=== PATIENT | female | born 1995 | race Caucasian/White ===

== ENCOUNTER 2018-11-10 10:32 | Emergency (ER) | payer OTHER ==
[2018-11-10 11:04] VITALS: RESP 16; TEMP 98.4
[2018-11-10] MEDS ORDERED: methylPREDNISolone SOD SUCCI 125 MG/2 ML VIAL IV STA (11:39)
[2018-11-10] MEDS ORDERED: diphenhydrAMINE 50 MG/ML 1 ML VIAL IVP STA (11:39)
[2018-11-10] MEDS ORDERED: FAMOTIDINE 20 MG/2 ML VIAL IV STA (11:39)
--- NOTE | 2018-11-10 11:46 | ED ---
Skin/Abscess/FB HPI - General Chief complaint: Skin/Abscess/Foreign Body Stated complaint: Hives/allergic reaction, chest tightness Time Seen by Provider: 11/10/18 11:14 Source: patient, RN notes reviewed Mode of arrival: ambulatory Limitations: no limitations - History of Present Illness Initial comments: 23-year-old female presents emergency Department with chief complaint of rash. Patient states that his last night has progressively worsened today which is diffusely all over her. Patient states is very itchy. She does notice it on her palms of her hands. Patient states that she has no sores or lesions or mouth. Patient was on Augmentin secondary to upper respiratory infection that has been lingering for several weeks. Patient denies any recent fevers or chills. Patient denies any difficulty breathing or shortness of breath. Patient states that she took Benadryl with no relief of symptoms. - Related Data Home Medications Medication Instructions Recorded Confirmed Lo Loestrin 1 tab PO DAILY@1200 11/10/18 11/10/18 buPROPion HCL [Wellbutrin SR] 150 mg PO BID 11/10/18 11/10/18 Previous Rx's Medication Instructions Recorded hydrOXYzine HCL [Atarax] 25 mg PO TID PRN #15 tab 11/10/18 Allergies Allergy/AdvReac Type Severity Reaction Status Date / Time Sulfa (Sulfonamide Allergy Unknown Verified 11/10/18 11:52 Antibiotics) Childhood Review of Systems ROS Statement: Those systems with pertinent positive or pertinent negative responses have been documented in the HPI. ROS Other: All systems not noted in ROS Statement are negative. 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 Absent: scleral icterus, conjunctival injection, periorbital swelling ENT exam: Present: normal exam, normal oropharynx (No lesions or sores noted no kolpik spots), mucous membranes moist Neck exam: Present: normal inspection, full ROM. Absent: tenderness, meningismus, lymphadenopathy Respiratory exam: Present: normal lung sounds bilaterally. Absent: respiratory distress, wheezes, rales, rhonchi, stridor Cardiovascular Exam: Present: regular rate, normal rhythm, normal heart sounds. Absent: systolic murmur, diastolic murmur, rubs, gallop, clicks GI/Abdominal exam: Present: soft, normal bowel sounds. Absent: distended, tenderness, guarding, rebound, rigid Neurological exam: Present: alert, oriented X3, CN II-XII intact Skin exam: Present: warm, dry, intact, normal color, rash (Diffuse macular rash varying in size erythematous noted diffusely over the body including the soles of the hand) Course Vital Signs 11/10/18 11/10/18 11:01 12:28 Temperature 98.4 F Pulse Rate 76 67 Respiratory 16 16 Rate Blood Pressure 121/79 123/81 O2 Sat by Pulse 98 100 Oximetry Medical Decision Making - Medical Decision Making 23-year-old female presented for diffuse rash. Patient's rash is consistent with more viral versus medication induced. Patient had no relief + medevac Pepcid and Benadryl. Patient will be discharged with Atarax return parameters were discussed. - Lab Data Lab Results 11/10/18 Range/Units 11:50 Heterophile Antibody Negative (Negative) Disposition Clinical Impression: Viral rash Disposition: HOME SELF-CARE Condition: Stable Instructions (If sedation given, give patient instructions): Acute Rash (ED) Additional Instructions: Please return to the Emergency Department if symptoms worsen or any other concerns. Prescriptions: hydrOXYzine HCL [Atarax] 25 mg PO TID PRN #15 tab PRN Reason: Itching Is patient prescribed a controlled substance at d/c from ED?: No Referrals: None,Stated [REFERRING] - 1-2 days Time of Disposition: 14:03
[2018-11-10 12:29] VITALS: PULSE 67
[2018-11-10 14:23] VITALS: BP 118/76
== END 2018-11-10 14:21 | disposition home or self-care (01) ==
LOC: EC 10:32
DX: B34.9 Viral infection, unspecified (principal); R07.89 Other chest pain; Z79.3 Long term (current) use of hormonal contraceptives; Z79.899 Other long term (current) drug therapy; Z88.2 Allergy status to sulfonamides
CPT/HCPCS: 36415; 86308; 99284; 96374; 96375 ×2; J1200; J2930